=== PATIENT | female | born 1980 | race Caucasian/White ===

== ENCOUNTER 2016-09-15 15:46 | Emergency (ER) | payer BC ==
[2016-09-15 15:59] VITALS: BP 147/84; PULSE 86; RESP 20; TEMP 98.9
--- NOTE | 2016-09-15 16:30 | ED ---
Allergic Reaction HPI - General Chief complaint: Allergic Reaction Stated complaint: Reaction to Med Time Seen by Provider: 09/15/16 16:15 Source: patient, RN notes reviewed Mode of arrival: ambulatory Limitations: no limitations - History of Present Illness Initial Comments: Patient is a 36-year-old female presents to the emergency room for evaluation of rash. Patient states she's been dealing with sinus symptoms for the past few weeks. Patient states about 9 days ago she was placed on Bactrim. Patient states today she developed a diffuse rash over her neck, chest, bilateral arms and legs. Patient denies the rash being itchy. Patient denies any discomfort. Patient states she thinks she is having an ALLERGIC to the Bactrim. Patient denies shortness of breath or trouble breathing. Patient denies trouble swallowing. Patient states she is still having sinus congestion symptoms. Patient denies any fevers or chills. Patient denies headache or dizziness. Patient denies ear pain or throat pain. - Related Data Previous Rx's Medication Instructions Recorded Cefuroxime Axetil [Ceftin] 500 mg PO BID 10 Days 09/15/16 Fluticasone Nasal [place] [Flonase 1 spray EA NOSTRIL DAILY #1 bottle 09/15/16 Nasal [place]] predniSONE 50 mg PO DAILY #5 tablet 09/15/16 Allergies Allergy/AdvReac Type Severity Reaction Status Date / Time Penicillins Allergy Rash/Hives Verified 04/10/14 06:07 Review of Systems ROS Statement: Those systems with pertinent positive or pertinent negative responses have been documented in the HPI. ROS Other: All systems not noted in ROS Statement are negative. Past Medical History Additional Past Medical History / Comment(s): broken collar bone x3, left breast tissue aspiration, d&c History of Any Multi-Drug Resistant Organisms: None Reported Additional Past Surgical History / Comment(s): D&C 2011 Past Anesthesia/Blood Transfusion Reactions: No Reported Reaction Past Psychological History: No Psychological Hx Reported Smoking Status: Never smoker Past Alcohol Use History: None Reported Past Drug Use History: None Reported - Past Family History Mother Family Medical History: Coronary Artery Disease (CAD), Diabetes Mellitus Additional Family Medical History / Comment(s): sciatica General Exam - General Exam Comments Initial Comments: Sitting in exam room, no distress. Limitations: no limitations General appearance: alert, in no apparent distress Head exam: Present: atraumatic, normocephalic, normal inspection Eye exam: Present: normal appearance ENT exam: Present: normal exam Neck exam: Present: normal inspection Respiratory exam: Present: normal lung sounds bilaterally. Absent: respiratory distress Cardiovascular Exam: Present: regular rate, normal rhythm, normal heart sounds Extremities exam: Present: normal inspection Back exam: Present: normal inspection Neurological exam: Present: alert, oriented X3, CN II-XII intact, normal gait Psychiatric exam: Present: normal affect, normal mood Skin exam: Present: warm, dry, other (Diffuse papular erythematous rash over chest, abdomen, bilateral arms and back) Course Vital Signs 09/15/16 15:57 Temperature 98.9 F Pulse Rate 86 Respiratory 20 Rate Blood Pressure 147/84 O2 Sat by Pulse 99 Oximetry Medical Decision Making - Medical Decision Making Patient is a 36-year-old female presents emergency room for evaluation of rash. Patient has recently been placed on Bactrim. Advised patient to discontinue taking Bactrim. It does appear the patient's having ALLERGIC reaction to the antibiotic. Patient switched to Ceftin. Patient also be placed on prednisone and Flonase nasal spray for sinus symptoms. Advised patient to follow-up with primary care provider in 24-48 hours for reevaluation. Patient does states she is breast-feeding. I did explain to patient to refrain from breast-feeding until antibiotics are finished. Patient states she understands everything that was discussed with her. Return parameters discussed. Case discussed with Dr. Barber. Disposition Clinical Impression: Adverse reaction to antibiotic, Sinusitis Disposition: HOME SELF-CARE Condition: Good Instructions: Sinusitis (ED), Antibiotic Medication Allergy (ED) Additional Instructions: Take antibiotics as directed. Take prednisone as directed. Use Flonase nasal spray as needed. Please follow-up with primary care provider for reevaluation in 24-48 hours. Discontinue taking Bactrim. If any new symptom arises or symptoms worsen, return to ER as soon as possible. Prescriptions: Cefuroxime Axetil [Ceftin] 500 mg PO BID 10 Days Fluticasone Nasal [place] [Flonase Nasal [place]] 1 spray EA NOSTRIL DAILY #1 bottle predniSONE 50 mg PO DAILY #5 tablet Referrals: Maria M Garcia MD [Primary Care Provider] - 1-2 days Time of Disposition: 16:25
== END 2016-09-15 16:58 | disposition home or self-care (01) ==
LOC: EC 15:46
DX: R21 Rash and other nonspecific skin eruption (principal); J34.89 Other specified disorders of nose and nasal sinuses; T36.8X5A Adverse effect of other systemic antibiotics, initial encounter; Z88.0 Allergy status to penicillin
CPT/HCPCS: 99283

== ENCOUNTER → 2017-02-20 | Outpatient (CLI) | payer BC ==
--- NOTE | 2017-02-20 16:49 | XR ---
EXAMINATION TYPE: XR chest 2V DATE OF EXAM: 02/20/2017 COMPARISON: NONE HISTORY: Right-sided rib pain TECHNIQUE: Frontal and lateral views of the chest are obtained. FINDINGS: Heart and mediastinum are normal. Lungs are clear. Diaphragm is normal. Bony thorax is int act. There is no sign of pneumothorax. IMPRESSION: Normal chest
== END | disposition home or self-care (01) ==
LOC: RADXRMAIN 16:23
PROVIDERS: ATTEND Family Medicine
DX: R07.1 Chest pain on breathing (principal)
CPT/HCPCS: 71020

== ENCOUNTER → 2017-04-17 | Outpatient (CLI) | payer BC ==
--- NOTE | 2017-04-24 14:32 | MM ---
Reason for exam: clinical finding. History: Benign cyst aspiration of the left breast, 2003. Taking hormonal contraceptives beginning at age 23. Indicated problem(s): lump or thickening in both breasts. Physical Findings: Nurse Summary: 1cm nodule in the right breast at 12 o'clock and a 0.5cm nodule in the left breast at 1 o'clock (nurse dw). MG 3D Diag Mammo W/Cad MIL Bilateral CC and MLO view(s) were taken. No prior studies available for comparison. The breast tissue is heterogeneously dense. This may lower the sensitivity of mammography. No suspicious calcifications are seen. There is no discrete abnormality including area of concern. These results were verbally communicated with the patient on 04/24/17. ASSESSMENT: Incomplete: need additional imaging evaluation, BI-RAD 0 RECOMMENDATION: Ultrasound of both breasts.
--- NOTE | 2017-04-24 14:34 | USB ---
Reason for exam: additional evaluation requested from abnormal screening. History: Benign cyst aspiration of the left breast, 2003. Taking hormonal contraceptives beginning at age 23. US Breast BILAT Right breast ultrasound includes all four quadrants, the retroareolar region and axilla. Finding demonstrates no cystic or solid lesion seen. Left breast ultrasound includes all four quadrants, the retroareolar region and axilla. Finding demonstrates a 0.3 x 0.3 x 0.4cm cystic lesion at the posterior nipple. These results were verbally communicated with the patient on 04/24/17. ASSESSMENT: Benign, BI-RAD 2 RECOMMENDATION: Routine screening mammogram of both breasts at age 42. Manage patient on a clinical basis.
== END | disposition home or self-care (01) ==
LOC: RADMAMWWP 06:50
PROVIDERS: ATTEND Obstetrics & Gynecology
DX: N64.52 Nipple discharge (principal); N63.20 Unspecified lump in the left breast, unspecified quadrant; R92.8 Other abnormal and inconclusive findings on diagnostic imaging of breast
CPT/HCPCS: 77066; 76641; G0279